=== PATIENT | male | born 1975 | race Hispanic/Latino ===

== ENCOUNTER 2021-03-16 19:39 | Inpatient (IN) | payer SELFPAY ==
[2021-03-16] MEDS ORDERED: Acetaminophen 500 MG TAB ONE (19:59)
[2021-03-16] MEDS ORDERED: Piperacillin/Tazobactam 3.375 GM VIAL ONE (20:13)
[2021-03-16 20:22] LABS: #Eosinphils 0.3 thou/uL (0.0-0.7); #Lymphocytes 1.3 thou/uL (1.20-3.40); #Monocytes 0.9 thou/uL (0.11-0.59); #Neutrophils 6.1 thou/uL (1.40-6.50); %Basophils 0.5 % (0.0-1.0); %Lymphocytes 15.2 % (21.0-51.0); %Neutrophils 70.2 % (42.0-75.0); Hemoglobin 12.3 g/dL (14.0-18.0); Mean Corpuscular HGB CONC 34.1 g/dL (32.0-36.0); Mean Corpuscular Hemoglobin 29.8 pg (27.0-31.0); Mean Corpuscular Volume 87.3 fL (78.0-98.0); Mean Platelet Volume 6.6 fL (7.4-10.4); Platelet Count 347 thou/uL (130-400); Red Blood Cell (RBC) Count 4.14 mill/uL (4.70-6.10); White Blood Cell (WBC) Count 8.6 thou/uL (4.8-10.8)
[2021-03-16 20:37] LABS: ALT (SGPT) 18 U/L (8-55); AST (SGOT) 9 U/L (5-34); Albumin 3.5 g/dL (3.5-5.0); Alkaline Phosphatase 100 U/L (40-110); Anion Gap 14 mmol/L (10-20); BUN (Urea Nitrogen) 14 mg/dL (8.9-20.6); Bilirubin, Total 0.3 mg/dL (0.2-1.2); Calc. Creatinine Clearance 0 mL/min (70-130); Calcium 9.6 mg/dL (7.8-10.44); Carbon Dioxide 28 mmol/L (22-29); Chloride 95 mmol/L (98-107); Glucose 407 mg/dL (70-105); Potassium 4.1 mmol/L (3.5-5.1); Protein, Total 7.5 g/dL (6.0-8.3); Sodium 133 mmol/L (136-145)
[2021-03-16] MEDS ORDERED: Vancomycin 1 GM/200 ML BAG ONE (21:11)
[2021-03-16 22:41] VITALS: BMI 23.1
[2021-03-16] MEDS ORDERED: Sodium Chloride 0.9% 1,000 ML IV SCH (22:45)
[2021-03-16] MEDS ORDERED: Piperacillin/Tazobactam 3.375 GM in Sodium Chloride 0.9% 100 ML IVPB SCH (23:59)
[2021-03-17] MEDS ORDERED: Ondansetron ODT 4 MG TAB PO PRN (00:51)
[2021-03-17] MEDS ORDERED: Ondansetron PF 4 MG/2 ML Vial IVP PRN (00:51)
[2021-03-17] MEDS ORDERED: Acetaminophen 650 MG Suppository PR PRN (00:51)
[2021-03-17] MEDS ORDERED: Acetaminophen 325 MG TAB PO PRN (00:51)
[2021-03-17] MEDS ORDERED: Dextrose 50% Abboject 50 ML SYRINGE SLOW IVP PRN (01:00)
[2021-03-17] MEDS ORDERED: HumaLOG 300 UNITS/3 ML VIAL SC PRN (01:00)
[2021-03-17] MEDS ORDERED: Dextrose 5% in Water 1,000 ML IV PRN (01:00)
[2021-03-17] MEDS ORDERED: Piperacillin/Tazobactam 3.375 GM in Sodium Chloride 0.9% 100 ML IVPB SCH (04:00)
[2021-03-17 06:34] LABS: #Eosinphils 0.4 thou/uL (0.0-0.7); #Lymphocytes 1.2 thou/uL (1.20-3.40); #Monocytes 0.7 thou/uL (0.11-0.59); #Neutrophils 6.2 thou/uL (1.40-6.50); %Basophils 0.1 % (0.0-1.0); %Eosinophils 4.7 % (0.0-10.0); %Lymphocytes 14.3 % (21.0-51.0); %Monocytes 8.6 % (0.0-10.0); %Neutrophils 72.3 % (42.0-75.0); Hemoglobin 12.2 g/dL (14.0-18.0); Mean Corpuscular HGB CONC 34.7 g/dL (32.0-36.0); Mean Corpuscular Hemoglobin 30.4 pg (27.0-31.0); Mean Corpuscular Volume 87.6 fL (78.0-98.0); Mean Platelet Volume 6.4 fL (7.4-10.4); Platelet Count 293 thou/uL (130-400); Red Blood Cell (RBC) Count 4.02 mill/uL (4.70-6.10); White Blood Cell (WBC) Count 8.6 thou/uL (4.8-10.8)
[2021-03-17 06:54] LABS: Anion Gap 10 mmol/L (10-20); BUN (Urea Nitrogen) 10 mg/dL (8.9-20.6); Calc. Creatinine Clearance 96 mL/min (70-130); Calcium 8.8 mg/dL (7.8-10.44); Carbon Dioxide 26 mmol/L (22-29); Chloride 100 mmol/L (98-107); Glucose 306 mg/dL (70-105); Potassium 4.3 mmol/L (3.5-5.1); Sodium 132 mmol/L (136-145)
[2021-03-17] MEDS: HumaLOG 300 UNITS/3 ML VIAL SC PRN ×2 (07:28→11:27)
[2021-03-17] MEDS: Enoxaparin Sodium 40 MG/0.4 ML SYRINGE SC SCH (08:50)
[2021-03-17] MEDS ORDERED: Vancomycin 1 GM in Premix Bag 1 BAG IVPB SCH (09:00)
[2021-03-17] MEDS ORDERED: Lantus 1000 UNITS/10 ML VIAL SC SCH (09:45)
[2021-03-17] MEDS: Piperacillin/Tazobactam 3.375 GM in Sodium Chloride 0.9% 100 ML IVPB SCH ×3 (10:07→23:58)
[2021-03-17 12:30] LABS: SARS-CoV-2 PCR by NAA Not Detected (NotDetected)
[2021-03-17] MEDS: HumaLOG 300 UNITS/3 ML VIAL SC SCH ×2 (16:34→21:08)
[2021-03-17] MEDS: Lantus 1000 UNITS/10 ML VIAL SC SCH (21:08)
[2021-03-18 06:12] LABS: Hemoglobin A1c 11.3 % (4.0-6.0)
[2021-03-18] MEDS: HumaLOG 300 UNITS/3 ML VIAL SC SCH ×3 (08:35→20:55)
[2021-03-18] MEDS: Piperacillin/Tazobactam 3.375 GM in Sodium Chloride 0.9% 100 ML IVPB SCH ×2 (08:35→16:47)
[2021-03-18] MEDS: Enoxaparin Sodium 40 MG/0.4 ML SYRINGE SC SCH (08:36)
[2021-03-18] MEDS: HumaLOG 300 UNITS/3 ML VIAL SC PRN ×2 (13:54→18:59)
[2021-03-18] MEDS: Vancomycin 1 GM in Premix Bag 1 BAG IVPB SCH (14:52)
[2021-03-18] MEDS: Lantus 1000 UNITS/10 ML VIAL SC SCH (20:55)
[2021-03-19] MEDS: Piperacillin/Tazobactam 3.375 GM in Sodium Chloride 0.9% 100 ML IVPB SCH ×3 (00:35→16:47)
[2021-03-19] MEDS: Vancomycin 1 GM in Premix Bag 1 BAG IVPB SCH ×2 (04:30→14:30)
[2021-03-19 06:30] LABS: #Eosinphils 0.3 thou/uL (0.0-0.7); #Lymphocytes 1.6 thou/uL (1.20-3.40); #Monocytes 0.6 thou/uL (0.11-0.59); #Neutrophils 7.1 thou/uL (1.40-6.50); %Basophils 0.4 % (0.0-1.0); %Eosinophils 3.2 % (0.0-10.0); %Lymphocytes 16.3 % (21.0-51.0); %Monocytes 5.9 % (0.0-10.0); %Neutrophils 74.2 % (42.0-75.0); Hemoglobin 13.4 g/dL (14.0-18.0); Mean Corpuscular HGB CONC 32.9 g/dL (32.0-36.0); Mean Corpuscular Hemoglobin 29.2 pg (27.0-31.0); Mean Corpuscular Volume 88.6 fL (78.0-98.0); Mean Platelet Volume 6.2 fL (7.4-10.4); Platelet Count 426 thou/uL (130-400); RBC Distribution Width 11.2 % (11.5-14.5); White Blood Cell (WBC) Count 9.5 thou/uL (4.8-10.8)
[2021-03-19 06:55] LABS: Anion Gap 13 mmol/L (10-20); BUN (Urea Nitrogen) 18 mg/dL (8.9-20.6); Calc. Creatinine Clearance 76 mL/min (70-130); Calcium 9.8 mg/dL (7.8-10.44); Carbon Dioxide 25 mmol/L (22-29); Chloride 102 mmol/L (98-107); Glucose 200 mg/dL (70-105); Potassium 4.1 mmol/L (3.5-5.1); Sodium 136 mmol/L (136-145)
[2021-03-19] MEDS: HumaLOG 300 UNITS/3 ML VIAL SC SCH ×3 (08:04→20:15)
[2021-03-19] MEDS: Enoxaparin Sodium 40 MG/0.4 ML SYRINGE SC SCH (08:04)
[2021-03-19] MEDS ORDERED: FLU VACC QS2021-22(6MOS UP)/PF 60 MCG/0.5 ML SYRINGE IM ONE (09:00)
[2021-03-19] MEDS ORDERED: Neomycin-Polymyxin 1 ML AMP ONE (10:54)
[2021-03-19] MEDS ORDERED: Bupivacaine PF 0.5% 30 ML VIAL ONE (10:54)
[2021-03-19] MEDS ORDERED: Ondansetron PF 4 MG/2 ML Vial ONE (11:15)
[2021-03-19] MEDS ORDERED: Lidocaine 1% PF 5 ML VIAL ONE (11:15)
[2021-03-19] MEDS ORDERED: ePHEDrine 50 MG/ML VIAL ONE (11:15)
[2021-03-19] MEDS ORDERED: PHENYLEPHRINE-NS 100 MCG/ML 10 ML SYRINGE ONE (11:15)
[2021-03-19] MEDS ORDERED: PROPOFOL 200 MG/20 ML VIAL ONE (11:15)
[2021-03-19] MEDS ORDERED: Fentanyl 100 MCG/2 ML VIAL ONE (11:16)
[2021-03-19] MEDS ORDERED: HYDROcodone/Acetaminophen 7.5/325 mg Tablet PO PRN (13:30)
[2021-03-19] MEDS: HumaLOG 300 UNITS/3 ML VIAL SC PRN (16:47)
[2021-03-19] MEDS ORDERED: Lantus 1000 UNITS/10 ML VIAL SC SCH (21:00)
[2021-03-20] MEDS: Piperacillin/Tazobactam 3.375 GM in Sodium Chloride 0.9% 100 ML IVPB SCH ×4 (00:10→23:42)
[2021-03-20 02:28] LABS: Vancomycin, Trough 12.7 ug/mL
[2021-03-20] MEDS: Vancomycin 1 GM in Premix Bag 1 BAG IVPB SCH ×2 (03:21→15:02)
[2021-03-20] MEDS: HumaLOG 300 UNITS/3 ML VIAL SC SCH (07:58)
[2021-03-20] MEDS: Enoxaparin Sodium 40 MG/0.4 ML SYRINGE SC SCH (08:03)
[2021-03-20] MEDS: HumaLOG 300 UNITS/3 ML VIAL SC PRN ×2 (11:45→17:06)
[2021-03-20] MEDS: metFORMIN 850 MG TAB PO SCH (17:06)
[2021-03-21] MEDS: Vancomycin 1 GM in Premix Bag 1 BAG IVPB SCH ×2 (03:40→14:25)
[2021-03-21] MEDS: HumaLOG 300 UNITS/3 ML VIAL SC PRN ×3 (05:49→17:23)
[2021-03-21] MEDS: Enoxaparin Sodium 40 MG/0.4 ML SYRINGE SC SCH (08:06)
[2021-03-21] MEDS: metFORMIN 850 MG TAB PO SCH ×2 (08:07→17:23)
[2021-03-21] MEDS: Piperacillin/Tazobactam 3.375 GM in Sodium Chloride 0.9% 100 ML IVPB SCH ×2 (08:08→17:23)
[2021-03-22] MEDS: Piperacillin/Tazobactam 3.375 GM in Sodium Chloride 0.9% 100 ML IVPB SCH ×3 (00:02→16:43)
[2021-03-22 02:57] LABS: Vancomycin, Trough 19.1 ug/mL
[2021-03-22] MEDS: Vancomycin 1 GM in Premix Bag 1 BAG IVPB SCH ×2 (03:19→14:26)
[2021-03-22] MEDS: HumaLOG 300 UNITS/3 ML VIAL SC PRN ×2 (06:18→11:52)
[2021-03-22] MEDS: Enoxaparin Sodium 40 MG/0.4 ML SYRINGE SC SCH (08:28)
[2021-03-22] MEDS: metFORMIN 850 MG TAB PO SCH (08:28)
[2021-03-22 16:22] VITALS: BP 138/84; TEMP 98.5
== END 2021-03-22 18:15 | disposition home or self-care (01) | DRG 603 ==
LOC: ERS 19:39 → SURG B 21:33
PROVIDERS: ADMIT Student in an Organized Health Care Education/Training Program; ATTEND Family Medicine
PROC: 0J9R0ZZ Drainage of Left Foot Subcutaneous Tissue and Fascia, Open Approach (ICD-10-PCS; principal; 2021-03-20)
DX: L02.612 Cutaneous abscess of left foot (principal); L03.116 Cellulitis of left lower limb; Z20.822 Contact with and (suspected) exposure to COVID-19; E11.65 Type 2 diabetes mellitus with hyperglycemia; B95.61 Methicillin susceptible Staphylococcus aureus infection as the cause of diseases classified elsewhere; Z79.84 Long term (current) use of oral hypoglycemic drugs
CPT/HCPCS: 36415; 36416; 80048; 80053; 80202; 83036; 83605; 85025; 85652; 86140; 87040; 87070; 87076; 87077; 87186; 87205; 96365; 96367; J1650; J1815; J2405; J2543; J2704; J3010; J3370; J3490; S0020; U0003; U0005